=== PATIENT | female | born 1970 | race Caucasian/White ===

== ENCOUNTER 2023-11-25 14:02 | Outpatient (AMB) | payer OTHER, SELFPAY ==
--- NOTE | 2023-11-25 14:16 | A.OFFPC_ITS ---
Vital Signs 11/25/23 14:26 Height 5 ft 5 in Weight 124 lb 6 oz BMI 20.7 BP 98/66 Blood Pressure Location Rt brachial Position Sitting Respiration 14 Pulse 64 Pulse Source Pulse Oximeter Temp 98.2 F Temp Source Oral Pulse Oximetry (%) 98 Oxygen Delivery Method Room Air Intake Visit Reasons: Establish Care Intake Note: New patient visit. Sore throat for months. Post nasal drip, zyrtec is not helping. Outpatient Psychiatrist Required: No Post menopausal: Yes Allergies theophylline Allergy (Intermediate, Verified 11/25/23 14:20) jittery Medication List - Last Reconciled 11/25/23 by Alma Ulrich PA-C epinephrine (EpiPen 2-Lennox) 0.3 mg (0.3 mL) IM ONCE PRN Tobacco use date assessed: 11/25/23 Dental Screening Dental Screen Date: 11/25/23 Did you have a dental visit in the last 12 months?: Yes Did you have a dental problem in the last 6 months where you did not have access to dental care?: No Was dental information given to patient?: Patient has dentist HPI Establish Care HPI Details Patient is a 53-year-old female with a significant past medical history of asthma, hx of bulimia, presenting today with complaints of a sore throat and to establish care. She is transferring from [employer]. She was last seen by myself on 06/04/2023 for a new patient telehealth visit. She previously had been a patient of Dr. Flores. In May she would presented with concerns of postnasal drip in a right-sided lymph node that felt enlarged. That lymph node would come and go. At that point she did have an intermittent sore throat with pnd. She denied congestion, difficulty swallowing, night sweats, rashes, fever, chills, nausea, vomiting, GERD. She states in the last 2 months she has noticed that she is cutting her food smaller and more aware of her swallowing and feeling like she could choke. She states she now has a somewhat persistent sore throat. She states that for the last few months it has been present almost every day. She states that she is just worried because she used to smoke cigarettes and at different times has drink more alcohol than she probably should have. She states that she also has a history of bulimia in her teenage years and knows that she caused some damage to her throat. She states that the swelling on the right side of her neck has resolved. She does live in a house that has many allergens such as carpets, dust, pets, plants, etc. She states that she is prone to seasonal allergies as well. At our office visit I did advise her to try an antihistamine and follow up in 3- 4 weeks. An ultrasound and labs were also ordered. She did not follow-up. I do not have any laboratory records that I do have my office notes and the ultrasound which was normal ultrasound of the thyroid gland with a slightly prominent but not pathologically enlarged level 2 lymph nodes bilaterally, likely reactive. -this weekend she was eating something a nd she states that it must have had some allergen it because she had swelling of her face and lips. She felt like her throat was closing. She did have Benadryl on her and took it every 8 hours for a couple days. She would like to see an menagerie caretaker. She does see the dentist every 6 months and has complained of the sore throat and states that the dentist has not noted any abnormalities. Colonoscopy: due in 2031 Pap smear: Up-to-date, follow up with [facility] Mammogram:utd, 02/12/23 [facility] Medical History (Updated 11/25/23 @ 15:06 by Alma Ulrich PA-C) Food allergy Chronic sore throat Dysphagia Asthma Surgical History (Updated 11/25/23 @ 14:23 by Antoinette Swanson CMA) Previous section Family History (Updated 11/25/23 @ 14:24 by Antoinette Swanson CMA) Father Hypercholesteremia Mother Thyroid disorder Oral cancer Social History (Updated 11/25/23 @ 14:22 by Antoinette Swanson CMA) Housing: House Patient Tobacco Use Status: Former Tobacco user Cigarettes Per Day: 1 Years Smoked: 6 e-Cigarette/Vaping Use: Never Used Second Hand Smoke Exposure: No Substance Use Type: Marijuana service: No Current occupational status: employed 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 1. Little interest or pleasure in doing things: not at all 2. Feeling down, depressed, or hopeless: not at all 3. Trouble falling or staying asleep, or sleeping too much: several days 4. Feeling tired or having little energy: not at all 5. Poor appetite or overeating: not at all 6. Feeling bad about yourself - or that you are a failure or have let yourself or your family down: not at all 7. Trouble concentrating on things, such as reading the newspaper or watching television: not at all 8. Moving or speaking so slowly that other people could have noticed. Or the opposite - being so fidgety or restless that you have been moving around a lot more than usual: not at all 9. Thoughts that you would be better off or of hurting yourself in some way: not at all Total score: 1 Depression Screening Interpretation: Negative Depression Screening Done: Yes 98768 - PHQ-9 Billing: Yes Source: Developed by Drs. Brice Franco, Sherin Cash, Basilio Dent and colleagues, with an educational bryce from [employer]. Thrive Questionnaire Date Thrive assessed: 11/25/23 I am a: Patient What is your living situation today?: I have a steady place to live Within the past 12 months, did the food you bought not last and you didn't have the money to get more?: Never true Within the past 12 months, did you worry whether your food would run out before you got money to buy more?: Never true Do you have trouble paying for medicines?: No Do you have trouble getting transportation to medical appointments?: No Do you have trouble paying your heating and electricity bill?: No Do you have trouble taking care of your child, family member or friend?: No Do you have trouble with day-to-day activities such as bathing, preparing meals, shopping, managing finances, etc.?: No Are you currently unemployed and looking for a job?: No Are you interested in more education?: No Please select the resources that you would like help with: None Currently or been in a relationship where the following occur: no concerns reported THRIVE Score: 0 AUDIT C Alcohol Use Questionnaire (AUDIT-C) 1. How often do you have a drink containing alcohol?: 4 or more times a week 2. How many drinks containing alcohol do you have on a typical day when you are drinking?: 1 or 2 3. How often do you have six or more drinks on one occasion?: Never Total Score: 4 IQRA-7 AMB Questionnaire IQRA-7 Date IQRA - 7 assessed: 11/25/23 Feeling nervous, anxious, or on edge: 0 = Not at all Not being able to stop or control worryin = Not at all Worrying too much about different things: 0 = Not at all Trouble relaxin = Not at all Being so restless that it is hard to sit still: 0 = Not at all Becoming easily annoyed or irritable: 0 = Not at all Feeling afraid as if something awful might happen: 0 = Not at all Total IQRA-7 score (0-4 normal; 5-9 mild; 10-14 moderate; 15-21 severe): 0 Source: Developed by Drs. Brice Franco, Sherin Cash, Basilio Dent and colleagues, with an educational bryce from [employer]. IQRA-7 Assessment Billing IQRA-7 Assessment Tool: IQRA-7 Assessment 44558 ACT Questionnaire In the past 4 weeks, how much of the time did your asthma keep you from getting as much done at work, school or at home?: None of the time During the past 4 weeks, how often have you had shortness of breath?: Not at all During the past 4 weeks, how often did your asthma symptoms wake you up at night or earlier than usual in the morning?: Not at all During the past 4 weeks, how often have you had to use your rescue inhaler or nebulizer medication?: Not at all How would you rate your asthma control during the past 4 weeks?: Completely controlled ACT Interpretation: Negative Score: 25 Physical exam (Primary Care) Depression Screening Interpretation: Negative Currently or been in a relationship where the following occur: no concerns reported Const Orientation/consciousness: patient oriented x3 HENMT Ears: hearing grossly normal bilaterally and TM's normal bilaterally General nose exam: Normal nasal mucous membranes and turbinates present Face and sinus: Yes sinuses nontender Mouth: Normal oral and palatal mucosa present, lip normal and tongue normal Throat: Yes posterior oropharynx normal and Yes uvula midline Eyes Pupils: Equal, round and reactive pupils present EOM: EOMs intact bilaterally Neck Thyroid: Thyroid normal Lymphatic: no lymphadenopathy noted Resp Auscultation: clear to auscultation bilaterally Cardio Rate: regular rate Rhythm: regular rhythm Heart sounds: S1 normal heart sound present and S2 normal heart sound present GI Inspection: Yes normal to inspection Palpation (GI): Soft to palpation and Other GI palpation findings present (nontender, no cva tenderness) Auscultation: normoactive bowel sounds Rectal Exam - Female: deferred Skin General skin exam: no rashes or lesions noted Neuro General: patient oriented x3, gait normal and no focal motor deficits Cranial nerves: Yes Equal, round and reactive pupils present Assessment and Plan Assessment & Plan (1) Dysphagia: Code(s): R13.10 - Dysphagia, unspecified Qualifiers: Dysphagia type: unspecified Qualified Code(s): R13.10 - Dysphagia, unspecified Plan: No weight loss or visible abnormality. Labs and barium swallow ordered. (2) Chronic sore throat: Code(s): J31.2 - Chronic pharyngitis Plan: Referral to ENT and Allergy and immunology. She will follow up sooner if anything worsens or changes. (3) Food allergy: Code(s): Z91.018 - Allergy to other foods Plan: EpiPen ordered. Her children have food allergies and she states that she is aware of how to use this. Advised to seek emergent medical treatment should she develop any signs or symptoms of anaphylaxis. She has been referred to Allergy and immunology. Plan Advised three-month follow up. Sooner if needed. Patient understands and agrees with the plan. Orders: Orders FL barium swallow Today J31.2 - Chronic pharyngitis, R13.10 - Dysphagia, unspecified Complete Blood Count Auto Diff Today J31.2 - Chronic pharyngitis, R13.10 - Dysphagia, unspecified Comprehensive Met. Panel Today J31.2 - Chronic pharyngitis, R13.10 - Dysphagia, unspecified TSH reflex Free T4 Today J31.2 - Chronic pharyngitis, R13.10 - Dysphagia, unspecified Referrals Ear/Nose/Throat Referral J31.2 - Chronic pharyngitis, R13.10 - Dysphagia, unspecified Allergy & Immunology Referral J31.2 - Chronic pharyngitis, Z91.018 - Allergy to other foods Medications: New epinephrine (EpiPen 2-Lennox) 0.3 mg (0.3 mL) IM ONCE PRN 2 ea 0RF anaphylaxis Coding Level of Care Code Est Pt Level 4 (68925) Complex EM visit Add On G2211 Diagnoses Dysphagia, unspecified type R13.10 Dysphagia type: unspecified Chronic sore throat J31.2 Food allergy Z91.018 Additional Codes IQRA-7 Assessment Billing - IQRA-7 Assessment Tool: IQRA-7 Assessment 66968 ([id number])
[2023-11-25 14:26] VITALS: BP 98/66; PULSE 64; RESP 14; TEMP 36.8; O2SAT 98; BMI 20.7
== END 2023-11-25 15:04 | disposition home or self-care (01) ==
PROVIDERS: PCP Physician Assistant; Visit Provider Physician Assistant
DX: R13.10 Dysphagia, unspecified (principal); J31.2 Chronic pharyngitis; Z91.018 Allergy to other foods
CPT/HCPCS: 99214; G2211

== ENCOUNTER 2023-11-26 09:16 | Outpatient (REF) | payer OTHER, SELFPAY ==
[2023-11-26 12:58] LABS: Alanine Aminotransferase 10 U/L (0-31); Alkaline Phosphatase 70 U/L (39-117); Anion Gap 13 (12-20); Aspartate Amino Transferase 17 U/L (5-31); Bilirubin Total 0.6 mg/dL (0.0-1.0); Blood Urea Nitrogen 13 mg/dL (9-16); Calcium 9.4 mg/dL (8.4-10.2); Carbon Dioxide 29 mmol/L (22-29); Chloride 101 mmol/L (96-108); Estimated Glomerular Filt Rate > 60; Glucose Random 79 mg/dL (60-115); Potassium 4.1 mmol/L (3.3-5.1); Sodium 139 mmol/L (135-145); TSH reflex Free T4 0.74 uIU/mL (0.32-4.0); Total Protein 7.2 g/dL (6.5-8.0)
== END 2023-11-26 09:17 | disposition home or self-care (01) ==
LOC: HO.WFDLDS 09:16
PROVIDERS: Visit Provider Physician Assistant
DX: J31.2 Chronic pharyngitis (principal); R13.10 Dysphagia, unspecified
CPT/HCPCS: 36415; 80053; 84443

== ENCOUNTER 2024-03-31 07:45 | Outpatient (REF) | payer OTHER, SELFPAY ==
--- NOTE | ~2024-03-31 | FL_ITS ---
EXAMINATION: XR FLUOROSCOPY UPPER GI WITH AIR CLINICAL INFORMATION: Dysphagia COMPARISON: None TECHNIQUE: Fluoroscopic air contrast upper GI examination was performed utilizing standard techniques with thin and thick barium and effervescent granules. Numerous spot images were obtained. FINDINGS: Lateral cine images of the oropharynx and hypopharynx demonstrate normal swallow mechanism with normal epiglottic inversion and soft palate elevation. No tracheal penetration, glottic or subglottic aspiration identified. No nasopharyngeal reflux present. There is a tiny left lateral pharyngeal pouch. There is minimal cricopharyngeal achalasia. Dual and single contrast images of the esophagus demonstrate normal caliber, contour, and mucosal pattern. No evidence of stricture, mass, or ulcerations identified. Esophageal peristalsis is mildly disorganized. No evidence of hiatus hernia identified. No significant gastroesophageal reflux was seen during the course of the examination and on reflux views. Dual contrast and single contrast images of the stomach demonstrated a normal contour. The areae gastrica have a mildly prominent appearance. There are multiple tiny foci of contrast pooling in the body of stomach that may represent small superficial apthous ulcers. No masses are present. Contrast freely passed into the gastric antrum and duodenal bulb without delay. Single and air-contrast images of the duodenal bulb demonstrate no abnormality. The duodenal sweep has a normal appearance, course, and mucosal fold appearance. The imaged proximal jejunum has a normal fold pattern and caliber. FLUOROSCOPY TIME: 3 minutes 3 seconds Number of Spot Images: 11 Number of Cine: 11 DOSE AREA PRODUCT: 990.5 uGy-m2 (microgray-meter squared) FL/FL barium swallow IMPRESSION: 1. Minimal cricopharyngeal achalasia. 2. Mildly disorganized esophageal peristalsis. 3. Prominence of the areae gastricae. In addition, there are multiple tiny foci of contrast pooling in the body the stomach. These findings are suggestive of erosive gastritis. Recommend correlation with EGD. This procedure was performed by Saurabh Fried PA-C, and supervised by Dr. Becerra Electronically signed by: Regino Becerra MD 03/31/2024 03:54 PM EDT
== END 2024-03-31 07:46 | disposition home or self-care (01) ==
LOC: HO.XRAY 07:45
PROVIDERS: PCP Physician Assistant; Visit Provider Physician Assistant
DX: R13.10 Dysphagia, unspecified (principal); J31.2 Chronic pharyngitis
CPT/HCPCS: 74220

== ENCOUNTER → 2024-03-31 07:46 | Outpatient (BNV) | payer OTHER, SELFPAY | PROVIDERS: PCP Physician Assistant; Visit Provider Radiology Diagnostic Radiology | DX: R13.10 Dysphagia, unspecified (principal) | CPT/HCPCS: 74246 ==

== ENCOUNTER 2024-04-01 10:44 | Outpatient (AMB) | payer OTHER, SELFPAY ==
--- NOTE | 2024-04-01 11:10 | MHC.PC.OV ---
Vital Signs 04/01/24 11:14 Height 5 ft 5 in Weight 122 lb 2 oz BMI 20.3 BP 100/74 Blood Pressure Location Rt brachial Position Sitting Respiration 12 Pulse 78 Pulse Source Pulse Oximeter Pulse Oximetry (%) 97 Oxygen Delivery Method Room Air Intake Visit Reasons: f/u throat issues Intake Note: Follow up. Had a barium swallow yesterday. Inflammation left hip. Has bursitis, but its getting worse. Feels like there is masses in her lower back and neck. Shell Sorter Required: No Allergies theophylline Allergy (Intermediate, Verified 04/01/24 11:12) jittery Medication List - Last Reconciled 04/01/24 by Alma Ulrich PA-C cetirizine (Zyrtec) 10 mg PO DAILY PRN [collagen peptides .] epinephrine (EpiPen 2-Lennox) 0.3 mg (0.3 mL) IM ONCE PRN Tobacco use date assessed: 11/25/23 Dental Screening Dental Screen Date: 11/25/23 HPI f/u throat issues HPI Details Patient is a 53-year-old female with a significant past medical history of asthma, hx of bulimia, presenting today for a follow up. She is transferring from [facility]. HEENT: In May 2023 she would presented with concerns of postnasal drip in a right-sided lymph node that felt enlarged. That lymph node would come and go. At that point she did have an intermittent sore throat with pnd. Then a few months ago she noticed that she was cutting her food smaller and more aware of her swallowing and feeling like she could choke. Her sore throat also became more persistent -I did order a barium swallow, ultrasound, referral to Allergy, and referral to ENT she did have the ultrasound which was negative. The barium swallow results came back yesterday: FL/FL barium swallow IMPRESSION: 1. Minimal cricopharyngeal achalasia. 2. Mildly disorganized esophageal peristalsis. 3. Prominence of the areae gastricae. In addition, there are multiple tiny foci of contrast pooling in the body the stomach. These findings are suggestive of erosive gastritis. Recommend correlation with EGD. -I did recommend that she try an antihistamine and she states that that caused her sore throat to be resolved. -She states that she is just worried because she used to smoke cigarettes and at different times has drink more alcohol than she probably should have. She states that she also has a history of bulimia in her teenage years and knows that she caused some damage to her throat. She states that the swelling on the right side of her neck has resolved. She does live in a house that has many allergens such as carpets, dust, pets, plants, etc. She states that she is prone to seasonal allergies as well. Musculoskeletal: She does complain today flank pain on both sides. She states it feels like she has cancer on her kidneys. She says that she feels cancer bubbles/masses that roll up her back. It seems to happen when she is sitting for a long time like at a desk or in a car. In certain positions she will get pain and lumps that she is not really able to feel on her flank area. She denies any abnormal vaginal discharge, dysuria, hematuria, increased urinary frequency or urgency. No pelvic pain or pressure. No weight loss. No fever, chills, night sweats. She has been getting some bilateral hip pain with this as well. Left side is worse than the right side. She does not want to see ortho yet. Colonoscopy: due in 2031 Pap smear: Up-to-date, follow up with [facility] Mammogram:utd, 02/12/23 [facility] Medical History (Updated 04/01/24 @ 11:56 by Alma Ulrich PA-C) Food allergy Chronic sore throat Dysphagia Asthma Surgical History (Updated 11/25/23 @ 14:23 by Antoinette Swanson CMA) Previous section Family History (Updated 11/25/23 @ 14:24 by Antoinette Swanson CMA) Father Hypercholesteremia Mother Thyroid disorder Oral cancer Social History (Updated 11/25/23 @ 14:22 by Antoinette Swanson CMA) Housing: House Patient Tobacco Use Status: Former Tobacco user Cigarettes Per Day: 1 Years Smoked: 6 e-Cigarette/Vaping Use: Never Used Second Hand Smoke Exposure: No Substance Use Type: Marijuana service: No Current occupational status: 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 Brice Franco, Sherin Cash, Basilio Dent and colleagues, with an educational bryce from [employer]. Physical exam (Primary Care) Vital Signs: Last Vital Signs Pulse 78 04/01/24 11:14 Resp 12 04/01/24 11:14 BP 100/74 04/01/24 11:14 Pulse Ox 97 04/01/24 11:14 Oxygen Delivery Method Room Air 04/01/24 11:14 BMI result Body Mass Index 20.3 Tobacco/Smoking Status: Tobacco use Status Tobacco use date assessed 11/25/23 04/01/24 11:17 Patient Tobacco Use Status Former Tobacco user 04/01/24 11:17 e-Cigarette/Vaping Use Never Used 04/01/24 11:17 Thrive Assessment: Date of Thrive Assessment Date Thrive assessed 11/25/23 04/01/24 11:17 Assessment and Plan Assessment & Plan (1) Dysphagia: Code(s): R13.10 - Dysphagia, unspecified Qualifiers: Dysphagia type: unspecified Qualified Code(s): R13.10 - Dysphagia, unspecified Plan: Reviewed the barium swallow. Referral to GI for an endoscopy. (2) Chronic sore throat: Code(s): J31.2 - Chronic pharyngitis Plan: Resolved (3) Erosive esophagitis: Code(s): K22.10 - Ulcer of esophagus without bleeding Plan: As above. We will start omeprazole. Discussed diet changes. Advised to avoid NSAIDs and alcohol. (4) Achalasia, esophageal: Code(s): K22.0 - Achalasia of cardia Plan: As above (5) Bilateral flank pain: Code(s): R10.9 - Unspecified abdominal pain Plan: Discussed with patient that it sounds more musculoskeletal in etiology versus related to her kidneys. Ultrasound ordered. Urine ordered. We will check labs. (6) Bilateral hip pain: Code(s): M25.551 - Pain in right hip; M25.552 - Pain in left hip Plan: X-rays ordered (7) Lumbar pain: Code(s): M54.50 - Low back pain, unspecified Plan: As above Plan Short term follow up. Sooner if needed. Patient understands and agrees with the plan. Orders: Orders Comprehensive Met. Panel Today M25.551 - Pain in right hip, M25.552 - Pain in left hip, M54.50 - Low back pain, unspecified, R10.9 - Unspecified abdominal pain XR lumbar spine 2-3V Today M25.551 - Pain in right hip, M25.552 - Pain in left hip, M54.50 - Low back pain, unspecified, R10.9 - Unspecified abdominal pain UA CC w/rflx Micro + Cult Today R10.9 - Unspecified abdominal pain US renal BI Today M25.551 - Pain in right hip, M25.552 - Pain in left hip, M54.50 - Low back pain, unspecified, R10.9 - Unspecified abdominal pain Complete Blood Count Auto Diff Today M25.551 - Pain in right hip, M25.552 - Pain in left hip, M54.50 - Low back pain, unspecified, R10.9 - Unspecified abdominal pain XR hip BI w PEL1V Today M25.551 - Pain in right hip, M25.552 - Pain in left hip, M54.50 - Low back pain, unspecified, R10.9 - Unspecified abdominal pain XR thoracic spine 2V Today M25.551 - Pain in right hip, M25.552 - Pain in left hip, M54.50 - Low back pain, unspecified, R10.9 - Unspecified abdominal pain Referrals Gastroenterology Referral J31.2 - Chronic pharyngitis, K22.0 - Achalasia of cardia, K22.10 - Ulcer of esophagus without bleeding, R13.10 - Dysphagia, unspecified Medications: New omeprazole 20 mg PO DAILY 90 caps 1RF Coding Level of Care Code Est Pt Level 4 (78577) Complex EM visit Add On G2211 Diagnoses Dysphagia, unspecified type R13.10 Dysphagia type: unspecified Chronic sore throat J31.2 Erosive esophagitis K22.10 Achalasia, esophageal K22.0 Bilateral flank pain R10.9 Bilateral hip pain M25.551; M25.552 Lumbar pain M54.50
[2024-04-01 11:14] VITALS: BP 100/74; PULSE 78; RESP 12; O2SAT 97; BMI 20.3
== END 2024-04-01 12:03 | disposition home or self-care (01) ==
PROVIDERS: PCP Physician Assistant; Visit Provider Physician Assistant
DX: R13.10 Dysphagia, unspecified (principal); J31.2 Chronic pharyngitis; K22.10 Ulcer of esophagus without bleeding; K22.0 Achalasia of cardia; R10.9 Unspecified abdominal pain; M25.551 Pain in right hip; M25.552 Pain in left hip; M54.50 Low back pain, unspecified
CPT/HCPCS: 99214

== ENCOUNTER 2024-04-02 10:03 | Outpatient (REF) | payer OTHER, SELFPAY ==
[2024-04-02 11:18] LABS: MANUAL DIFF FLAG NO
[2024-04-02 11:37] LABS: Basophils Absolute Auto 0.1 X10*3/uL (0.0-0.2); Basophils Percent Auto 1.1 % (0-2); Eosinophils Absolute Auto 0.1 X10*3/uL (0.0-0.4); Eosinophils Percent Auto 1.4 % (0-4); Hematocrit 39.9 % (37.0-47.0); Hemoglobin 13.8 g/dl (12.0-16.0); Imm Gran Abs Auto 0.02 X10*3/uL (0.00-0.03); Imm Gran Pct Auto 0.3 % (0.0-0.4); Lymphocytes Absolute Auto 2.5 X10*3/uL (1.2-4.9); Lymphocytes Percent Auto 39.5 % (20-40); Mean Corpuscular HGB Conc 34.6 g/dl (31.0-35.0); Mean Corpuscular Hemoglobin 33.7 pg (27.0-33.0); Mean Corpuscular Volume 97.6 fL (80.0-98.0); Mean Platelet Volume 9.1 fL (9.4-12.3); Monocytes Absolute Auto 0.6 X10*3/uL (0.1-1.2); Monocytes Percent Auto 9.9 % (2-11); Neutrophils Percent Auto 47.8 % (45-73); Platelet Count 360 X10*3/uL (160-400); Red Blood Count 4.09 X10*6/uL (4.20-5.50); Red Cell Distribution Width 11.9 % (11.0-16.0); White Blood Count 6.3 X10*3/uL (4.8-10.8)
[2024-04-02 12:16] LABS: Alanine Aminotransferase 13 U/L (0-31); Albumin Level 4.5 g/dL (3.5-5.0); Alkaline Phosphatase 70 U/L (39-117); Anion Gap 15 (12-20); Aspartate Amino Transferase 21 U/L (5-31); Bilirubin Total 1.3 mg/dL (0.0-1.0); Blood Urea Nitrogen 12 mg/dL (9-16); Carbon Dioxide 26 mmol/L (22-29); Chloride 103 mmol/L (96-108); Estimated Glomerular Filt Rate > 60; Glucose Random 99 mg/dL (60-115); Potassium 4.1 mmol/L (3.3-5.1); Sodium 140 mmol/L (135-145); Total Protein 7.6 g/dL (6.5-8.0)
[2024-04-02 14:58] LABS: Appearance Urine Clear; Color Urine Yellow; Glucose Urine UA Negative (Negative); Leukocyte Esterase Urine Negative (Negative); Nitrite Urine Negative (Negative); Urine Blood Negative (Negative); Urine Ketones Negative (Negative); Urine Protein Negative (Neg-Trace)
== END 2024-04-02 10:04 | disposition home or self-care (01) ==
LOC: HO.WFDLDS 10:03
PROVIDERS: Visit Provider Physician Assistant
DX: R10.9 Unspecified abdominal pain (principal); M25.551 Pain in right hip; M25.552 Pain in left hip; M54.50 Low back pain, unspecified; J31.2 Chronic pharyngitis; R13.10 Dysphagia, unspecified
CPT/HCPCS: 36415; 80053; 81003; 85025

== ENCOUNTER 2024-04-02 10:36 | Outpatient (REF) | payer OTHER, SELFPAY ==
--- NOTE | ~2024-04-02 | XR_ITS ---
EXAMINATION: XR BILATERAL HIPS WITH AP PELVIS CLINICAL INFORMATION: Abdominal pain. Pain in the hips and back. COMPARISON: None available. TECHNIQUE: AP and frog-leg lateral views of each hip and an AP view of the pelvis. FINDINGS: Borderline dysplasia of the acetabular bilaterally, left greater than right, with lateral center edge angle of [place] measuring 20-degrees on the left and 24-degrees on the right. Mild osteoarthritis of the left hip joint with subchondral sclerosis and marginal osteophytes. More minimal osteoarthritis of the right hip. Pubic symphysis is normal. SI joints are normal in appearance. No fractures. Small volume of barium within the cecum, rectum, and appendix. XR/XR hip BI w PEL1V IMPRESSION: 1. Mild osteoarthritis in the hips, left greater than right. 2. Borderline dysplasia of the acetabula bilaterally, left greater than right. Electronically signed by: Regino Gonzalez MD 04/20/2024 11:09 PM EDT
--- NOTE | ~2024-04-02 | XR_ITS ---
EXAMINATION: XR THORACIC SPINE XR LUMBAR SPINE CLINICAL INFORMATION: Pain in the hips and back. COMPARISON: None available. TECHNIQUE: AP, lateral, and swimmer's views of the thoracic spine and AP and lateral views of the lumbar spine and lateral view of the lumbosacral junction. FINDINGS: Thoracic: Vertebral body heights are normal. Alignment is anatomic without spondylolisthesis. Intervertebral disc heights are well-maintained. No degenerative disc disease. Paraspinal soft tissues are unremarkable. No osseous lesions are identified. Lumbar: [id number] degenerative disc disease at L2-L3 and L3-L4 is characterized by loss of intervertebral disc height and endplate osteophytes. There is grade 1 retrolisthesis of L2 on L3 by 4 mm. Grade 1 anterolisthesis of L3 on L4 measures 2 mm. Minimal degenerative disc disease at L4-L5. Vertebral body heights are normal. No fractures. Radiodense material is present in the right lower quadrant, potentially barium within the appendix and cecum. Soft tissues are otherwise unremarkable. XR/XR thoracic spine 2V IMPRESSION: 1. [id number] degenerative disc disease at L2-L3 and L3-L4 with grade 1 retrolisthesis of L2 on L3 and grade 1 anterolisthesis of L3 on L4. 2. No significant degenerative changes in the thoracic spine. Electronically signed by: Regino Gonzalez MD 04/20/2024 10:14 PM EDT RP
--- NOTE | ~2024-04-02 | XR_ITS ---
EXAMINATION: XR THORACIC SPINE XR LUMBAR SPINE CLINICAL INFORMATION: Pain in the hips and back. COMPARISON: None available. TECHNIQUE: AP, lateral, and swimmer's views of the thoracic spine and AP and lateral views of the lumbar spine and lateral view of the lumbosacral junction. FINDINGS: Thoracic: Vertebral body heights are normal. Alignment is anatomic without spondylolisthesis. Intervertebral disc heights are well-maintained. No degenerative disc disease. Paraspinal soft tissues are unremarkable. No osseous lesions are identified. Lumbar: [id number]-cfuhkwlg degenerative disc disease at L2-L3 and L3-L4 is characterized by loss of intervertebral disc height and endplate osteophytes. There is grade 1 retrolisthesis of L2 on L3 by 4 mm. Grade 1 anterolisthesis of L3 on L4 measures 2 mm. Minimal degenerative disc disease at L4-L5. Vertebral body heights are normal. No fractures. Radiodense material is present in the right lower quadrant, potentially barium within the appendix and cecum. Soft tissues are otherwise unremarkable. XR/XR lumbar spine 2-3V IMPRESSION: 1. Rfqu-pl-[id number] degenerative disc disease at L2-L3 and L3-L4 with grade 1 retrolisthesis of L2 on L3 and grade 1 anterolisthesis of L3 on L4. 2. No significant degenerative changes in the thoracic spine. Electronically signed by: Regino Gonzalez MD 04/20/2024 10:14 PM EDT
== END 2024-04-02 10:37 | disposition home or self-care (01) ==
LOC: HO.XRAY 10:36
PROVIDERS: PCP Physician Assistant; Visit Provider Physician Assistant
DX: R10.9 Unspecified abdominal pain (principal); M54.50 Low back pain, unspecified; M25.551 Pain in right hip; M25.552 Pain in left hip
CPT/HCPCS: 72070; 72100; 73521

== ENCOUNTER 2024-05-19 09:46 | Outpatient (AMB) | payer BC, SELFPAY ==
--- NOTE | 2024-05-19 09:58 | MHC.OFFVIS ---
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 Pt states her left side is worse than her right. She mentions that her pain has been going on for many years. Patient states she hasn't had any previous treatment in the past. She states that she works out everyday and it hasn't improved. 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 The patient was seen by her PCP on 04/01/24 when she reported bilateral hip pain, the left hip worse than the right hip. X-rays of the bilateral hips were obtained. While in the office today, the patient mentions ongoing pain for the past 17-18 years. She confirms bilateral hip pain, which is worse in the left hip than the right hip. She does mobility exercises every morning without any improvement in the pain. She has not tried any treatment in the past. She has tried OTC ibuprofen as recommended by her PCP. [facility] Medical History (Updated 05/19/24 @ 10:20 by Yris Middleton PA-C) Food allergy Chronic sore throat Dysphagia Asthma Surgical History (Updated 11/25/23 @ 14:23 by Antoinette Swanson CMA) Previous section Family History (Updated 11/25/23 @ 14:24 by Antoinette Swanson CMA) Father Hypercholesteremia Mother Thyroid disorder Oral cancer Social History (Updated 05/19/24 @ 10:02 by Stalin Dunlap) Housing: House Alcohol intake: never Patient Tobacco Use Status: Former Tobacco user Cigarettes Per Day: 1 Years Smoked: 6 e-Cigarette/Vaping Use: Never Used Second Hand Smoke Exposure: No Substance Use Type: Marijuana service: No Current occupational status: 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: No Cognitive needs: No Hearing needs: No Vision needs: Yes (glasses) Review of Systems Const All systems reviewed & are unremarkable except as noted in HPI and below Physical Exam Const General: cooperative and no acute distress Orientation/consciousness: patient oriented x3 Resp Effort & Inspection: normal respiratory effort and able to speak in complete sentences Cardio Peripheral pulses: Peripheral pulses 2+ throughout Skin General skin exam: no rashes or lesions noted Neuro General: patient oriented x3 Extrem Other: Bilateral hip: Normal to inspection. No ecchymosis, erythema, or edema. Full hip ROM in all planes. No tenderness to palpation over the greater trochanteric bursa. 5/5 strength with resisted hip flexion, knee extension, abduction, and abduction. Able to perform straight leg raise. NVI. Assessment & Plan Assessment & Plan (1) Bilateral hip dysplasia: Code(s): Q65.89 - Other specified congenital deformities of hip Category: Medical Plan Ms. Wright is a 53-year-old female who presents in the office today, as a new patient, for an evaluation of bilateral hip pain. The patient was seen by her PCP on 04/01/24 when she reported bilateral hip pain, the left hip worse than the right hip. X-rays of the bilateral hips were obtained. While in the office today, the patient mentions ongoing pain for the past 17-18 years. She confirms bilateral hip pain, which is worse in the left hip than the right hip. She does mobility exercises every morning without any improvement in the pain. She has not tried any treatment in the past. She has tried OTC ibuprofen as recommended by her PCP. We discussed the role of surgical versus a conservative treatment, including a cortisone injection or physical therapy. We would like to proceed with physical therapy at this time. The patient was provided with a paper copy of the physical therapy prescription to go to any facility she wished to attend. She was encouraged to continue mobility exercises and advised to modify activities as needed. She was recommended wearing good supportive footwear to aid with pain. She was also provided with my business card today. Follow-up will be PRN, or sooner if needed. X-rays of the bilateral hips, obtained on 05/02/24, revealed: 1. Mild osteoarthritis in the hips, left greater than right. 2. Borderline dysplasia of the acetabula bilaterally, left greater than right. Orders: Orders PT Evaluation and Treatment Today Q65.89 - Other specified congenital deformities of hip Patient Instructions: Scribed by Lindsay White faculty i on call medical assistant, for Yris Middleton PA-C on 05/19/24 at 10:30 am EST. Coding Level of Care Code New Pt Level 3 (05632) Diagnoses Bilateral hip dysplasia Q65.89
== END 2024-05-19 10:25 | disposition home or self-care (01) ==
PROVIDERS: PCP Physician Assistant; Visit Provider Physician Assistant
DX: Q65.89 Other specified congenital deformities of hip (principal)
CPT/HCPCS: 99203

== ENCOUNTER → 2024-05-19 09:46 | Outpatient (BNVA) | payer OTHER, SELFPAY | PROVIDERS: PCP Physician Assistant; Visit Provider Physician Assistant ==

== ENCOUNTER 2024-07-09 08:29 | Outpatient (AMB) | payer BC, SELFPAY ==
--- NOTE | 2024-07-09 08:30 | MHC.PC.OV ---
Vital Signs 07/09/24 08:33 Height 5 ft 5 in Weight 125 lb 4 oz BMI 20.8 BP 110/64 Blood Pressure Location Rt brachial Position Sitting Pulse 51 Pulse Source Pulse Oximeter Pulse Oximetry (%) 100 Oxygen Delivery Method Room Air Intake Visit Reasons: follow up on xray and blood work Intake Note: Follow up on xray and blood work. Still having sore throat, ENT appt 08/03/24. Difficutly sleeping. 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 HEENT: In May 2023 she would presented with concerns of postnasal drip in a right-sided lymph node that felt enlarged and dysphagia that is somewhat new. She did have a barium swallow which showed the results listed below. FL/FL barium swallow IMPRESSION: 1. Minimal cricopharyngeal achalasia. 2. Mildly disorganized esophageal peristalsis. 3. Prominence of the areae gastricae. In addition, there are multiple tiny foci of contrast pooling in the body the stomach. These findings are suggestive of erosive gastritis. Recommend correlation with EGD. -she has an appointment with GI 08/03 and has already been referred to ENT as well. Since starting the antihistamine and pantoprazole symptoms have improved. 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 Psych: Has had a hard time falling asleep and staying asleep. In the past was using CBD but does not want to do this because she does not want to test positive for any THC on a drug screen. She says that she is looking for a new job. Colonoscopy: due in 2031 Pap smear: Up-to-date, follow up with [facility] Mammogram:utd, 02/12/23 [facility] Medical History (Updated 07/09/24 @ 08:55 by Alma Ulrich PA-C) Food allergy Chronic sore throat Dysphagia Asthma Surgical History Previous section Family History (Updated 11/25/23 @ 14:24 by Antoinette Swanson CMA) Father Hypercholesteremia Mother Thyroid disorder Oral cancer Social History (Updated 07/09/24 @ 08:33 by Antoinette Swanson CMA) Housing: House Alcohol intake: current Patient Tobacco Use Status: Former Tobacco user Cigarettes Per Day: 1 Years Smoked: 6 e-Cigarette/Vaping Use: Never Used Second Hand Smoke Exposure: No Substance Use Type: Former Substance User and Marijuana service: No Current occupational status: 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 1. Little interest or pleasure in doing things: not at all 2. Feeling down, depressed, or hopeless: not at all 3. Trouble falling or staying asleep, or sleeping too much: more than half the days 4. Feeling tired or having little energy: not at all 5. Poor appetite or overeating: not at all 6. Feeling bad about yourself - or that you are a failure or have let yourself or your family down: not at all 7. Trouble concentrating on things, such as reading the newspaper or watching television: not at all 8. Moving or speaking so slowly that other people could have noticed. Or the opposite - being so fidgety or restless that you have been moving around a lot more than usual: not at all 9. Thoughts that you would be better off or of hurting yourself in some way: not at all Total score: 2 Source: Developed by Drs. Brice Franco, Sherin Cash, Basilio Dent and colleagues, with an educational bryce from [employer]. Thrive Questionnaire Date Thrive assessed: 11/25/23 I am a: Patient What is your living situation today?: I have a steady place to live Within the past 12 months, did the food you bought not last and you didn't have the money to get more?: Never true Within the past 12 months, did you worry whether your food would run out before you got money to buy more?: Never true Do you have trouble paying for medicines?: No Do you have trouble getting transportation to medical appointments?: No Do you have trouble paying your heating and electricity bill?: No Do you have trouble taking care of your child, family member or friend?: No Do you have trouble with day-to-day activities such as bathing, preparing meals, shopping, managing finances, etc.?: No Are you currently unemployed and looking for a job?: Yes Are you interested in more education?: No Please select the resources that you would like help with: None Currently or been in a relationship where the following occur: No concerns reported THRIVE Score: 0 AUDIT C Alcohol Use Questionnaire (AUDIT-C) 1. How often do you have a drink containing alcohol?: 4 or more times a week 2. How many drinks containing alcohol do you have on a typical day when you are drinking?: 1 or 2 3. How often do you have six or more drinks on one occasion?: Never Total Score: 4 IQRA-7 AMB Questionnaire IQRA-7 Date IQRA - 7 assessed: 11/25/23 Feeling nervous, anxious, or on edge: 0 = Not at all Not being able to stop or control worryin = Not at all Worrying too much about different things: 0 = Not at all Trouble relaxin = Not at all Being so restless that it is hard to sit still: 0 = Not at all Becoming easily annoyed or irritable: 0 = Not at all Feeling afraid as if something awful might happen: 0 = Not at all Total IQRA-7 score (0-4 normal; 5-9 mild; 10-14 moderate; 15-21 severe): 0 Source: Developed by Drs. Brice Franco, Sherin Cash, Basilio Dent and colleagues, with an educational bryce from [employer]. Physical exam (Primary Care) Vital Signs: Last Vital Signs Pulse 51 07/09/24 08:33 BP 110/64 07/09/24 08:33 Pulse Ox 100 07/09/24 08:33 Oxygen Delivery Method Room Air 07/09/24 08:33 BMI result Body Mass Index 20.8 Tobacco/Smoking Status: Tobacco use Status Tobacco use date assessed 11/25/23 07/09/24 08:35 Patient Tobacco Use Status Former Tobacco user 07/09/24 08:35 e-Cigarette/Vaping Use Never Used 07/09/24 08:35 PHQ-9: PHQ-9 Score PHQ-9: Total score 2 07/09/24 08:40 Thrive Assessment: Date of Thrive Assessment Date Thrive assessed 11/25/23 07/09/24 08:35 Currently or been in a relationship where the following occur: No concerns reported Const Orientation/consciousness: patient oriented x3 HENMT Ears: hearing grossly normal bilaterally Neck Thyroid: Thyroid normal Lymphatic: no lymphadenopathy noted Resp Auscultation: clear to auscultation bilaterally Cardio Rate: regular rate Rhythm: regular rhythm Heart sounds: S1 normal heart sound present and S2 normal heart sound present GI Inspection: Yes normal to inspection Palpation (GI): Soft to palpation and Other GI palpation findings present (nontender, no cva tenderness) Auscultation: normoactive bowel sounds Rectal Exam - Female: deferred Skin General skin exam: no rashes or lesions noted Neuro General: patient oriented x3, gait normal and no focal motor deficits Results Reviewed Results Reviewed: FINDINGS: Thoracic: Vertebral body heights are normal. Alignment is anatomic without spondylolisthesis. Intervertebral disc heights are well-maintained. No degenerative disc disease. Paraspinal soft tissues are unremarkable. No osseous lesions are identified. Lumbar: [id number]-[id number] degenerative disc disease at L2-L3 and L3-L4 is characterized by loss of intervertebral disc height and endplate osteophytes. There is grade 1 retrolisthesis of L2 on L3 by 4 mm. Grade 1 anterolisthesis of L3 on L4 measures 2 mm. Minimal degenerative disc disease at L4-L5. Vertebral body heights are normal. No fractures. Radiodense material is present in the right lower quadrant, potentially barium within the appendix and cecum. Soft tissues are otherwise unremarkable. XR/XR thoracic spine 2V IMPRESSION: 1. Fzbs-hk-[id number] degenerative disc disease at L2-L3 and L3-L4 with grade 1 retrolisthesis of L2 on L3 and grade 1 anterolisthesis of L3 on L4. 2. No significant degenerative changes in the thoracic spine. Coding Level of Care Code Est Pt Level 4 (43218) Complex EM visit Add On G2211 Diagnoses Dysphagia, unspecified type R13.10 Dysphagia type: unspecified Chronic sore throat J31.2 Erosive esophagitis K22.10 Insomnia G47.00 Assessment & Plan Assessment & Plan (1) Dysphagia: Code(s): R13.10 - Dysphagia, unspecified Category: Medical Qualifiers: Dysphagia type: unspecified Qualified Code(s): R13.10 - Dysphagia, unspecified Plan: Has an appointment scheduled with GI. Increase omeprazole to 40 mg that she does have breakthrough symptoms. (2) Chronic sore throat: Code(s): J31.2 - Chronic pharyngitis Category: Medical Plan: Improved since starting PPI and antihistamine. Continue current regimen. Follow with ENT. (3) Erosive esophagitis: Code(s): K22.10 - Ulcer of esophagus without bleeding Category: Medical Plan: As above. (4) Insomnia: Code(s): G47.00 - Insomnia, unspecified Category: Medical Plan: We will start trazodone. Discussed risks and benefits and adverse effects of this medication. Orders: Orders TSH reflex Free T4 Today G47.00 - Insomnia, unspecified, J31.2 - Chronic pharyngitis, K22.10 - Ulcer of esophagus without bleeding, R13.10 - Dysphagia, unspecified Liver Panel Today G47.00 - Insomnia, unspecified, J31.2 - Chronic pharyngitis, K22.10 - Ulcer of esophagus without bleeding, R13.10 - Dysphagia, unspecified Complete Blood Count Auto Diff Today G47.00 - Insomnia, unspecified, J31.2 - Chronic pharyngitis, K22.10 - Ulcer of esophagus without bleeding, R13.10 - Dysphagia, unspecified Medications: New trazodone 50 mg PO BEDTIME 90 tabs 0RF Changed From omeprazole 20 mg PO DAILY 90 caps 1RF To omeprazole 40 mg (2 x 20 mg) PO DAILY 90 days 180 caps 1RF
[2024-07-09 08:33] VITALS: BP 110/64; PULSE 51; O2SAT 100; BMI 20.8
== END 2024-07-09 09:01 | disposition home or self-care (01) ==
PROVIDERS: PCP Physician Assistant; Visit Provider Physician Assistant
DX: R13.10 Dysphagia, unspecified (principal); J31.2 Chronic pharyngitis; K22.10 Ulcer of esophagus without bleeding; G47.00 Insomnia, unspecified

== ENCOUNTER 2024-07-09 09:21 | Outpatient (REF) | payer BC, SELFPAY ==
[2024-07-09 11:39] LABS: MANUAL DIFF FLAG NO
[2024-07-09 11:43] LABS: Basophils Absolute Auto 0.1 X10*3/uL (0.0-0.2); Basophils Percent Auto 0.8 % (0-2); Eosinophils Absolute Auto 0.1 X10*3/uL (0.0-0.4); Eosinophils Percent Auto 1.2 % (0-4); Hemoglobin 13.8 g/dl (12.0-16.0); Imm Gran Abs Auto 0.01 X10*3/uL (0.00-0.03); Imm Gran Pct Auto 0.2 % (0.0-0.4); Lymphocytes Absolute Auto 2.3 X10*3/uL (1.2-4.9); Lymphocytes Percent Auto 37.5 % (20-40); Mean Corpuscular HGB Conc 33.7 g/dl (31.0-35.0); Mean Corpuscular Hemoglobin 33.3 pg (27.0-33.0); Mean Corpuscular Volume 98.8 fL (80.0-98.0); Monocytes Absolute Auto 0.6 X10*3/uL (0.1-1.2); Monocytes Percent Auto 9.2 % (2-11); Neutrophils Absolute Auto 3.1 x10*3/uL (2.0-8.3); Neutrophils Percent Auto 51.1 % (45-73); Platelet Count 337 X10*3/uL (160-400); Red Blood Count 4.15 X10*6/uL (4.20-5.50); Red Cell Distribution Width 11.9 % (11.0-16.0); White Blood Count 6.1 X10*3/uL (4.8-10.8)
[2024-07-09 12:04] LABS: Alanine Aminotransferase 13 U/L (0-31); Albumin Level 4.3 g/dL (3.5-5.0); Alkaline Phosphatase 67 U/L (39-117); Aspartate Amino Transferase 28 U/L (5-31); Bilirubin Direct 0.4 mg/dL (0.0-0.5); Bilirubin Total 1.2 mg/dL (0.0-1.0); Total Protein 7.4 g/dL (6.5-8.0)
[2024-07-09 12:21] LABS: TSH reflex Free T4 1.85 uIU/mL (0.32-4.0)
== END 2024-07-09 09:22 | disposition home or self-care (01) ==
LOC: HO.WFDLDS 09:21
PROVIDERS: Visit Provider Physician Assistant
DX: J31.2 Chronic pharyngitis (principal); R13.10 Dysphagia, unspecified; K22.10 Ulcer of esophagus without bleeding; G47.00 Insomnia, unspecified
CPT/HCPCS: 36415; 80076; 84443; 85025

== ENCOUNTER 2024-08-03 12:47 | Outpatient (AMB) | payer BC, SELFPAY ==
[2024-08-03 12:49] VITALS: BP 123/74; PULSE 75; BMI 20.6
--- NOTE | 2024-08-03 12:49 | MHC.OFFVIS ---
Vital Signs 08/03/24 12:49 Height 5 ft 5 in Weight 123 lb 13.89 oz BMI 20.6 BP 123/74 Blood Pressure Location Lt brachial Position Sitting Pulse 75 Intake Visit Reasons: Dysphagia Intake Note: Zeenat present in the office as a new patient for Dysphagia. CC: She states that she has a sore throat. She denies a feeling of something stuck in her throat. No issues with swallowing. She was told that she may have acid reflux so she was given the pantoprazole and increased. She states that she feels it has gotten a little better and she feels it more when she is under a lot of stress. She states that she does not eat as often as she should so there is not a lot in her stomach. Service Center Assistant Required: No Allergies theophylline Allergy (Intermediate, Verified 08/03/24 12:53) colten HPI Comments Details: 53 y.o F with PMH who is here for burning throat . Pt describes it a globus sensation on and off throughout the day assoc with burning and urge to cough it up. Notices it more during the winter time since the air is dry now. No report of dysphagia but pt is very particular about food size and cuts up her food very small and chews thoroughly. Was taking NSAIDs but stopped as barium swallow showed gastritis. Started on PPI by her PCP. No fam hx of esophageal ca. Mother: tongue ca. Hx of smoking 15 y ago. Drinks 1 drink/day. Last colo 2022 - normal. 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 Minimal cricopharyngeal achalasia. 2. Mildly disorganized esophageal peristalsis. 3. Prominence of the areae gastricae. In addition, there are multiple tiny foci of contrast pooling in the body the stomach. These findings are suggestive of erosive gastritis. Recommend correlation with EGD. Assessment & Plan Assessment & Plan (1) Gastritis: Code(s): K29.70 - Gastritis, unspecified, without bleeding Category: Medical (2) Cricopharyngeal achalasia: Code(s): K22.0 - Achalasia of cardia Category: Medical Plan Likely has globus sensation 2/2 cricopharyngeal narrowing. Will book for EGD with dilation. Gastritis likely 2/2 NSAID use, will bx for H PYlori since getting EGD done anyway. Plan: - EGD to be booked - Cont ppi - hold x 7 days prior to egd - follow up after egd - [facility] not due till 2032. Follow up after egd Coding Level of Care Code New Pt Level 4 (59695) Diagnoses Gastritis K29.70 Cricopharyngeal achalasia K22.0
== END 2024-08-03 13:17 | disposition home or self-care (01) ==
PROVIDERS: PCP Physician Assistant; Visit Provider Internal Medicine
DX: K29.70 Gastritis, unspecified, without bleeding (principal); K22.0 Achalasia of cardia
CPT/HCPCS: 99204

== ENCOUNTER 2024-11-17 07:55 | Day surgery (SDC) | payer OTHER, SELFPAY ==
[2024-11-12 12:53] VITALS: BMI 20.6
--- OUTSIDE RECORDS SUMMARY | 2024-11-12 17:23 | XMS_ITS | Data Portability ---
Author Organization [place] [facility], Allergy Address [address] [place] [id number] Care Team Providers Care Roller Mill Tender Name Role Phone SINDY DEMPSEY Referring Provider [phone] LARA VO Primary Care Provider SINDY DEMPSEY Referring Provider Assessment Encounter Date Assessment Date Assessment LastModified by Organization Details LastModified Time 07/14/2024 07/14/2024 53 year old female presents today for evaluation of chronic sore throat. She has noted some improvement in the discomfort with initiation of omeprazole. Oral cavity exam is normal without any mass or lesion. Fiberoptic laryngoscopy is normal with the exception of mild postcricoid thickening, consistent with possible reflux disease. There is no adenopathy. Reassurance was provided that her exam is not concerning. I would agree with continuing the omeprazole and the GI consult. If the GI consult is unrevealing and she continues to have throat discomfort she will contact the office for reevaluation. [email or web address] Not available 07/14/2024 09:48:53 Plan of Treatment Reminders Order Date Submit Date Provider Last Modified By Organization Details Last Modified Time Details Appointments None record ed. Lab None record ed. Referral None record ed. Procedures None record ed. Surgeries None record ed. Imaging None record ed. Medication Orders None record ed. Patient TargetsNo targets recorded. Patient InstructionsNo instructions recorded. Reason for Referral None Reported. Problems Name Problem SNOMED Code Status Onset Date Resolution Date Notes Provider Name and Address Organization Details Recorded Time Chronic sore throat 871199520 Active Varinder Jasmyn zamora [place] [facility] 09:36:45 Problem Notes None recorded. Procedures Surgical History Date Name Laterality Status Provider Name and Address Organization Details Recorded Time 07/14/20 24 Fiberoptic Laryngoscopy (Comprehensive) completed Jasmyn Smith [facility] 07/14/2024 09:36:36 Imaging Results None recorded. Procedure Notes None recorded. Medical Equipment None Reported. Allergies Allergen ID Allergen Name Allergen Category Reaction Reaction Severity Criticality Documentation Date Start Date Code Code System Note Provider Name and Address Organization Details Recorded Time 096027 theophyll ine medicatio n Not available Not available Not available 07/14/2024 83217 RxNorm Mariela zamora [facility] 09:05:37 661408 theophyll ine anhydrous medicatio n Not available Not available Not available 07/14/2024 95455 RxNorm Mariela zamora [facility] 09:06:02 Medications Name Sig Start Date Stop Date Status Note LastModified by Organization Details LastModified Time trazodone 50 mg tablet TAKE 1 TABLET BY MOUTH AT BEDTIME active Not Available Not Available No t Available omeprazole 20 mg capsule,sandy yed release TAKE 1 CAPSULE BY MOUTH DAILY active Not Available Not Available Not Available epinephrine 0.3 mg/0.3 mL injection, auto-injecto r INJECT 1 PEN IN THE MUSCLE ONCE NEEDED FOR ANAPHYLAXIS active Not Available Not Available Not Available Vitals Date Recorded Body height Body mass index (BMI) Body weight Provider Name and Address Organization Details Last Updated DateTime 07/14/2024 165.1 cm 20.1 kg/m2 37237.68 g Mariela Montoya [facility] 07/14/2024 09:04:27 Social History Question Answer Notes LastModified by Organizat ion Details LastModified Time Tobacco Smoking Status Former Smoker Mariela zamora [facility] 07/14/2024 09:07:09 What Is Your Level Of Alcohol Consumption? Occasional [email or web address] Information not available 07/14/2024 Sex: Unknown Functional Status None recorded. Mental Status None recorded. Family History Nothing Reported. Medical History Condition Response Asthma Y Gynecological HistoryNo gynecological history recorded. Obstetrics History GPAL:G 0 P 0 0 0 0 Past Encounters Encounter ID Performer Location Encounter Start Date Encounter Closed Date Diagnosis/Indication Diagnosis SNOMED-CT Code Diagnosis ICD10 Code Diagnosis Note [id number] Jasmyn Smith [facility] [address] [facility] [place] [address] 07/14/2024 08:52:01 07/14/2024 10:07:11 Chronic sore throat 172492587 J31.2 Family his tory of malignant neoplasm of oral cavity 6473159372 422715 Z80.8 Health Concerns Section Related Observation LastModified by Organization Detai ls LastModified Time None Recorded Concern Status LastModified by Organization Details LastModified Time None Recorded Advance Directives Directive None Recorded Payers Encounter Date Sequence Insurance Name Policy Number Policy Aguilar Covered Member ID Aguilar Member ID Guarantor Name 07/14/2024 1 [facility] [place] [place] [id number] Saurabh Wright [id number] Zeenat Wright Notes Date Note Type Note Provider Name and Address Organization Details Recorded Time 07/14/2024 text/html 53 year old tayo puckett presents today for evaluation of sore throat.She reports the back wall of her throat has felt sore for about 6-8 months now. She denies any dysphagia, but she does have to be conscious of how quickly she eats and how small her bites are. She has no voice changes. She did see her PCP who started her on omeprazole for possible reflux. She has noted since starting the omeprazole she has seen some days when her throat is not sore. She admits that her diet is poor. Some days she will only drink a cup of coffee until she is very hungry. She has a GI appointment pending as well.She also feels like she has chronic postnasal drip. She often feels there is mucus in her throat that she needs to clear. She has a history of seasonal allergies and asthma in the past, but both of those symptoms seemed to improve when she had her son 18 years ago.She is a former smoker. She smoked for 5-6 years around college age. She has not smoked at all in about 15-20 years. She drinks alcohol socially, 1-2 alcoholic seltzers or a vodka and soda daily. She has a history of bulimia in college as well. Her mother, who was a non smoker, from tongue cancer. She does make an effort to drink at least 64 ounces of water per day. Jasmyn zamora [place] - [facility] 07/14/2024 09:49:05 OBGyn Episode No OBEpisode recorded.
--- NOTE | 2024-11-13 08:50 | HO.ANESPROP2 ---
Documented by User: Aye Marcus NP 11/13/24 08:50 HPI - Anesthesia Eval Consult details Narrative: 54yo F for Upper Endoscopy PMFSH Active Problems Active Problems: All Active Problems Cricopharyngeal achalasia (Acute) Gastritis (Acute) Insomnia (Acute) Bilateral hip dysplasia (Acute) Lumbar pain (Acute) Bilateral hip pain (Acute) Bilateral flank pain (Acute) Achalasia, esophageal (Acute) Erosive esophagitis (Acute) Food allergy (Acute) Chronic sore throat (Acute) Dysphagia (Acute) Past Medical History Medical History (Updated 11/12/24 @ 12:51 by Martha Fitzgerald RN) Bilateral hip dysplasia Chronic sore throat Dysphagia Asthma Family History Family History Father Hypercholesteremia Mother Thyroid disorder Oral cancer Surgical History Surgical History Hx of section Hx of colonoscopy Social History Social History Housing: House Are you a primary day care worker to a significant other at home: No Do you presently have visiting nurse or other home services: No Alcohol intake: current Alcohol intake frequency: 0-2 drinks per day Patient Tobacco Use Status: Former Tobacco user Tobacco use type: Cigarette Cigarettes Per Day: 1 Years Smoked: 2 Smoked in Last 30 Days: No e-Cigarette/Vaping Use: Never Used Second Hand Smoke Exposure: No Use of substances other than those prescribed or required for medical reasons: No Substance Use Type: Former Substance User and Marijuana Have you been hit, kicked, punched, or otherwise hurt by someone within the past year? 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 Cognitive needs: No Hearing needs: No Vision needs: Yes (glasses) Meds Allergies Allergy/AdvReac Type Severity Reaction Status Date / Time theophylline Allergy Intermediate jittery Verified 11/17/24 08:10 Home Medications ?Medication ?Instructions ?Recorded ?Confirmed ?Last Taken ?Type cetirizine 10 mg tablet (Zyrtec) 10 mg PO DAILY PRN allergies 04/01/24 11/17/24 Unknown History collagen peptides .Route 04/01/24 07/09/24 Unknown History Exam Height,Weight and Vital Signs: Height 5 ft 5 in Weight 56.245 kg Assessment and Plan Assessment Anesthesia Assessment: Chart Reviewed Documented by User: Vineet Pa MD 11/17/24 09:01 [facility] Past Medical History Medical History (Updated 11/12/24 @ 12:51 by Martha Fitzgerald RN) Bilateral hip dysplasia Chronic sore throat Dysphagia Asthma Family History Family History Father Hypercholesteremia Mother Thyroid disorder Oral cancer Family history of problems with anesthesia: No Surgical History Surgical History Hx of section Hx of colonoscopy History of Problems with Anesthesia: No Social History Social History Housing: House Are you a primary day care worker to a significant other at home: No Do you presently have visiting nurse or other home services: No Alcohol intake: current Alcohol intake frequency: 0-2 drinks per day Patient Tobacco Use Status: Former Tobacco user Tobacco use type: Cigarette Cigarettes Per Day: 1 Years Smoked: 2 Smoked in Last 30 Days: No e-Cigarette/Vaping Use: Never Used Second Hand Smoke Exposure: No Use of substances other than those prescribed or required for medical reasons: No Substance Use Type: Former Substance User and Marijuana Have you been hit, kicked, punched, or otherwise hurt by someone within the past year? 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 Cognitive needs: No Hearing needs: No Vision needs: Yes (glasses) Meds Allergies Allergy/AdvReac Type Severity Reaction Status Date / Time theophylline Allergy Intermediate jittery Verified 11/17/24 08:10 Home Medications ?Medication ?Instructions ?Recorded ?Confirmed ?Last Taken ?Type cetirizine 10 mg tablet (Zyrtec) 10 mg PO DAILY PRN allergies 04/01/24 11/17/24 Unknown History collagen peptides .Route 04/01/24 07/09/24 Unknown History Exam Airway Mallampati Class: II TM Dist: >3cm Neck ROM: Full Loose/Missing/Broken Teeth: No Assessment and Plan Assessment Anesthesia Assessment: Anesthesia Plan Discussed Final Anesthetic Review Family History of Problems with Anesthesia: No History of Problems with Anesthesia: No NPO: Yes ASA Class: II Final Preanesthetic Review: No Changes in Pt Med Stat, Meds/Allgs Chart Reviewed, Consent Obtained/Reviewed and Anes Risks/Benef Reviewed Patient Risk: Low Procedure Risk: Low Anesthetic Plan Anesthetic Plan: MAC: Disposition: Standard PACU
[2024-11-17 08:11] VITALS: BP 115/80; PULSE 69; RESP 16; TEMP 36.6; O2SAT 99; BMI 20.7
[2024-11-17] MEDS: Lactated Ringers 1,000 ML 100 ML IVCONT (08:20)
--- NOTE | 2024-11-17 08:20 | MHC.SHP ---
Pre-Procedural Eval Section A - 24 Hr Update-Section A only Date of Service: 11/17/24 Section B - Complete if H&P > 30 days Chief Complaint: Dysphagia, unspecified Details of Present Illness: Food allergy Chronic sore throat Dysphagia Asthma Surgical History Hx of colonoscopy Previous section Family History Father Hypercholesteremia Mother Thyroid disorder Oral cancer Present Medications: see Short Stay Collaborative assessment Allergies: Allergies Allergy/AdvReac Type Severity Reaction Status Date / Time theophylline Allergy Intermediate jittery Verified 11/17/24 08:10 Review of Systems Review of Systems Comment: 10 point ROS negative Exam Exam Comment: Gen appear: No acute distress HEENT: no icterus Chest: No overt resp distress Abd: soft, nontender, nondistended Psych: Stable affect, answering questions appropriately Neuro: A/Ox3 noted to move all extremities spontaneously Ext: no peripheral edema Plan Diagnosis/Plan: Unchanged I have reviewed the history and physical and performed a pertinent physical examination on my patient. No changes have occurred unless specified. Time Spent With Patient Time: Total time managing care of this patient today ____ minutes.
--- NOTE | 2024-11-17 08:41 | P.OP_ITS ---
Operative Note Operative Note Date of Service: 11/17/24 Narrative: Procedure: Esophagogastroduodenoscopy Endoscopist: Courtney Whitney MD Indication: Dysphagia Anesthesia Provider: Dr Vineet Pa Anesthesia Type: MAC ?? EGD Procedure:?? The procedure, indications, preparation and potential complications were reviewed with the patient, who indicated understanding and gave written informed consent to proceed. A physical exam was performed. The endoscope was introduced through the mouth, and advanced to the second part of duodenum. The mucosa was carefully examined on slow withdrawal of the endoscope. The patient tolerated the procedure well. There were no immediate complications.? ? EGD Findings:? * Esophagus:? Small erosions measuring < 5 mm noted at the GE junction. The Z line was at 39 cm. * Stomach:? Erythema and erosions noted in the antrum. There was a small 8 mm polyp pre-pylorus at 11 o clock with subtle mucosal changes on NBI. Cold forceps polypectomy was performed and the polyp was completely retrieved. Cold forceps gastric biopsies were also taken from antrum and body of the stomach. Retroflexion was performed cardia. * Duodenum:? Normal mucosa was noted in the whole of the examined duodenum. Additional intervention: Soft tipped Savary wire was introduced through the biopsy channel of the gastroscope and advanced to the antrum. ?The gastroscope was then backed out. ?Savary Debi bougie was advanced over the guidewire and the esophagus was dilated to 18 mm without any resistance felt. ?On relook, scant heme and superficial tear was noted at the level of cricopharyngeus confirming successful dilation. ? ? EGD Impressions:? * Grade A esophagitis * Cricopharyngeal narrowing (dilation) * Antral gastritis (biopsy) * Normal duodenum ?? Recommendations:?? * Follow biopsy results. Our office will call or send a letter with results within 7-10 days. * Continue PPI therapy. * Avoid NSAIDs. * Repeat dilation can be arranged PRN for recurrence of symptoms Above has been reviewed with the patient. Relevant educational hand outs were provided at discharge. ?
[2024-11-17 08:43] VITALS: BP 110/70; PULSE 75; RESP 16; TEMP 36.2; O2SAT 97
[2024-11-17 08:58] VITALS: BP 109/64; PULSE 62; RESP 17; TEMP 37; O2SAT 95
== END 2024-11-17 09:49 | disposition home or self-care (01) ==
PROVIDERS: PCP Physician Assistant; Visit Provider Internal Medicine
PROC: 0DJ08ZZ Inspection of Upper Intestinal Tract, Via Natural or Artificial Opening Endoscopic (ICD-10-PCS; CPT 43235; principal; 2024-11-17 09:10)
DX: R13.10 Dysphagia, unspecified (principal); K22.0 Achalasia of cardia; J31.2 Chronic pharyngitis; K29.50 Unspecified chronic gastritis without bleeding; B96.81 Helicobacter pylori [H. pylori] as the cause of diseases classified elsewhere; K31.A11 Gastric intestinal metaplasia without dysplasia, involving the antrum; K20.80 Other esophagitis without bleeding; K31.7 Polyp of stomach and duodenum; J45.909 Unspecified asthma, uncomplicated; Z79.899 Other long term (current) drug therapy; Z88.8 Allergy status to other drugs, medicaments and biological substances; F19.11 Other psychoactive substance abuse, in remission; Z87.891 Personal history of nicotine dependence; Z56.0 Unemployment, unspecified
CPT/HCPCS: 43248; 43239; 88305; 88313; 88342; C1769; J2003; J2704

== ENCOUNTER → 2024-11-17 07:55 | Outpatient (BNV) | payer OTHER, SELFPAY | PROVIDERS: PCP Physician Assistant; Visit Provider Internal Medicine | DX: R13.10 Dysphagia, unspecified (principal); K20.90 Esophagitis, unspecified without bleeding; K29.70 Gastritis, unspecified, without bleeding | CPT/HCPCS: 43239; 43248 ==

== ENCOUNTER 2024-12-04 11:26 | Outpatient (REF) | payer OTHER, SELFPAY ==
--- OUTSIDE RECORDS SUMMARY | 2024-12-04 11:56 | XMS_ITS | Data Portability ---
Author Organization [place] [facility], Allergy Address [address] [place] [phone] Care Team Providers Care Fish Processing Supervisor Name Role Phone SINDY DEMPSEY Referring Provider LARA VO Primary Care Provider [phone] SINDY DEMPSEY Referring Provider Assessment Encounter Date [...] Organization Details Recorded Time Chronic sore throat 002636778 Active Varinder Jasmyn zamora [place] [facility] 09:36:45 Problem Notes None recorded. Procedures Surgical History Date Name Laterality Status Provider Name and Address Organization Details Recorded Time 07/14/20 24 Fiberoptic Laryngoscopy (Comprehensive) completed Jasmyn Valero [facility] 07/14/2024 09:36:36 Imaging Results None recorded. Procedure Notes None recorded. Medical Equipment None Reported. Allergies Allergen ID Allergen Name Allergen Category Reaction Reaction Severity Criticality Documentation Date Start Date Code Code System Note Provider Name and Address Organization Details Recorded Time 697831 theophyll ine medicatio n Not available Not available Not available 07/14/2024 63918 RxNorm Mariela zamora [facility] 09:05:37 606335 theophyll ine anhydrous medicatio n Not available Not available Not available 07/14/2024 25794 RxNorm Mariela zamora [facility] 09:06:02 Medications Name Sig Start Date Stop [...] Updated DateTime 07/14/2024 165.1 cm 20.1 kg/m2 16320.68 g Mariela Montoya [facility] 07/14/2024 09:04:27 Social History Question Answer Notes LastModified by Organizat ion Details LastModified Time Tobacco Smoking Status Former Smoker Mariela zamora [facility] 07/14/2024 09:07:09 What Is Your Level Of Alcohol Consumption? Occasional [email or web address] Information not available 07/14/2024 Sex: Unknown Functional Status None recorded. Mental Status None recorded. Family History Nothing Reported. Medical History Condition Response Asthma Y Gynecological HistoryNo gynecological history recorded. Obstetrics History GPAL:G 0 P 0 0 0 0 Past Encounters Encounter ID Performer Location Encounter Start Date Encounter Closed Date Diagnosis/Indication Diagnosis SNOMED-CT Code Diagnosis ICD10 Code Diagnosis Note [id number] JASMYN VALERO PA-C [facility] [address] [place] [address] 07/14/2024 08:52:01 07/14/2024 10:07:11 Chronic sore throat 160959796 J31.2 Family his tory of malignant neoplasm of oral cavity 0852814015 064420 Z80.8 Health Concerns Section Related Observation LastModified by Organization Detai ls LastModified Time None Recorded Concern Status LastModified by Organization Details LastModified Time None Recorded Advance Directives Directive None Recorded Payers Insurance Date Sequence Insurance Name Policy Number Policy Aguilar Covered Member ID Aguilar Member ID Guarantor Name 07/14/2024 1 [facility] [id number] Saurabh Wright [id number] Zeenat Wright Notes Date Note Type [...] zamora [place] - [facility] 07/14/2024 09:49:05 OBGyn Episode No OBEpisode recorded.
== END 2024-12-04 11:27 | disposition home or self-care (01) ==
LOC: HO.MAMMO 11:26
PROVIDERS: PCP Physician Assistant; Visit Provider Physician Assistant
DX: Z12.31 Encounter for screening mammogram for malignant neoplasm of breast (principal)
CPT/HCPCS: 77063; 77067

== ENCOUNTER → 2024-12-04 11:45 | Outpatient (BNV) | payer OTHER, SELFPAY | PROVIDERS: PCP Physician Assistant; Visit Provider Internal Medicine | DX: Z12.31 Encounter for screening mammogram for malignant neoplasm of breast (principal) | CPT/HCPCS: 77063; 77067 ==

== ENCOUNTER → 2024-12-14 14:12 | Outpatient (AMB) | payer OTHER, SELFPAY ==
--- NOTE | 2024-12-14 14:13 | A.OFFVIS_ITS ---
Intake Visit Reasons: S/P EGD; Dr. Whitney Intake Note: Zeenat presents as a video call for results to her EGD. CC: States that she is just wanting results - she seens results and were a little alarming to her. Brood Hatchery Manager Required: No Allergies theophylline Allergy (Intermediate, Verified 12/14/24 14:13) jittery HPI Comments Details: 53 y.o F with PMH who is here for burning throat . Pt describes it a globus sensation on and off throughout the day assoc with burning and urge to cough it up. Notices it more during the winter time since the air is dry now. No report of dysphagia but pt is very particular about food size and cuts up her food very small and chews thoroughly. Was taking NSAIDs but stopped as barium swallow showed gastritis. Started on PPI by her PCP. No fam hx of esophageal ca. Mother: tongue ca. Hx of smoking 15 y ago. Drinks 1 drink/day. Last colo 2022 - normal. EGD 11/17/24: * Grade A esophagitis * Cricopharyngeal narrowing (dilation) * Antral gastritis (biopsy) * Normal duodenum Path: A. Stomach, antrum, biopsy: - Antral-type mucosa with moderate chronic, focally active, inflammation, regenerative changes and intestinal metaplasia; negative for dysplasia. - Positive for H. pylori. B. Stomach, body, biopsy: Oxyntic mucosa with moderate chronic inactive inflammation; no Helicobacter organisms seen. C. Stomach, antrum, polypectomy: - Antral-type mucosa with moderate chronic active inflammation, surface hyperplastic changes and intestinal metaplasia; negative for dysplasia. - Positive for H. pylori 12/14/24: being seen in follow up as tele. Reports good response to dilation, no further difficulty swallowing or globus sensation. Biopsy results reviewed, including H pylori with GIM in antrum. Treatment discussed. Patient prefers Vonoprazan to improve adherence. [facility] Medical History (Updated 12/14/24 @ 15:13 by Courtney Whitney MD) Bilateral hip dysplasia Chronic sore throat Dysphagia Asthma Surgical History (Updated 12/14/24 @ 14:13 by ALONDRA Blanco) History of esophagogastroduodenoscopy (EGD) Hx of section Hx of colonoscopy Family History Father Hypercholesteremia Mother Thyroid disorder Oral cancer Social History Housing: House Are you a primary career development counselor to a significant other at home: No Do you presently have visiting nurse or other home services: No Alcohol intake: current Alcohol intake frequency: 0-2 drinks per day Patient Tobacco Use Status: Former Tobacco user Tobacco use type: Cigarette Cigarettes Per Day: 1 Years Smoked: 2 e-Cigarette/Vaping Use: Never Used Second Hand Smoke Exposure: No Substance Use Type: Former Substance User and Marijuana service: No Current occupational status: 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: No Cognitive needs: No Hearing needs: No Vision needs: Yes (glasses) Review of Systems Const All systems reviewed & are unremarkable except as noted in HPI and below Physical Exam Vital Signs: Video visit: No acute distress No icterus noted No facial asymmetry Speaking in full sentences Telehealth Telehealth Telehealth Platform: [employer] Location of provider rendering services: practice address Location of patient: address on file Patient Identification confirmed using: Name, : Yes Telehealth method: video Patient verbally consented to treatment: Yes Patient verbally consented to billing insurance company: Yes Patient informed of any privacy concerns related to visit: Yes Minutes spent on Phone/Video with Pt.: 12 Assessment & Plan Assessment & Plan (1) Cricopharyngeal achalasia: Code(s): K22.0 - Achalasia of cardia Category: Medical (2) H. pylori infection: Code(s): A04.8 - Other specified bacterial intestinal infections Category: Medical Plan 1. Dysphagia resolved since dilation. Likely secondary to mild cricopharyngeal stenosis, as well as some component of GERD. 2. H pylori gastritis Reviewed indication for treatment, including presence of focal gastric intestinal metaplasia in antrum. Plan: - Voquezna dual pack prescribed x 14 days. Pt plans to start this in December. - JACK 4 weeks after completion. Medications: New vonoprazan-amoxicillin 20 mg (28)- 500 mg (84) (Voquezna Dual [place]) for 14 days 112 pkgs 0RF A04.8 - Other specified bacterial intestinal infections Coding Level of Care Code Tele Est Pt Level 3 (45222) Diagnoses Cricopharyngeal achalasia K22.0 H. pylori infection A04.8
--- OUTSIDE RECORDS SUMMARY | 2024-12-14 14:23 | XMS_ITS | Data Portability ---
Author Organization [place] - [facility], Allergy Address [address] [place] [id number] Care Team Providers Care Client Care Representative Name Role Phone SINDY DEMPSEY Referring Provider [phone] LARA VO Primary Care Provider [phone] SINDY DEMPSEY Referring Provider Assessment Encounter Date [...] Organization Details Recorded Time Chronic sore throat [id number] Active Varinder Jasmyn zamora [place] - [facility] 09:36:45 Problem Notes None recorded. Procedures Surgical History Date Name Laterality Status Provider Name and Address Organization Details Recorded Time 07/14/20 24 Fiberoptic Laryngoscopy (Comprehensive) completed Jasmyn Valero [facility] 07/14/2024 09:36:36 Imaging Results None recorded. Procedure Notes None recorded. Medical Equipment None Reported. Allergies Allergen ID Allergen Name Allergen Category Reaction Reaction Severity Criticality Documentation Date Start Date Code Code System Note Provider Name and Address Organization Details Recorded Time 035331 theophyll ine medicatio n Not available Not available Not available 07/14/2024 92013 RxNorm Mariela zamora [facility] 09:05:37 185702 theophyll ine anhydrous medicatio n Not available Not available Not available 07/14/2024 29512 RxNorm Mariela zamora [facility] 09:06:02 Medications Name Sig Start Date Stop [...] Updated DateTime 07/14/2024 165.1 cm 20.1 kg/m2 74807.68 g Mariela Montoya [facility] 07/14/2024 09:04:27 Social History None recorded. Functional Status Question Answer Note LastModified by Organizat ion Details LastModified Time What is your level of alcohol consumption? Occasional [email or web address] Information not available 07/14/2024 Mental Status None recorded. Family History Nothing Reported. Medical History Condition Response Asthma Y Gynecological HistoryNo gynecological history recorded. Obstetrics History GPAL:G 0 P 0 0 0 0 Past Encounters Encounter ID Performer Location Encounter Start Date Encounter Closed Date Diagnosis/Indication Diagnosis SNOMED-CT Code Diagnosis ICD10 Code Diagnosis Note [id number] JASMYN VALERO PA-C [facility] [address] [place] [address] 07/14/2024 08:52:01 07/14/2024 10:07:11 Chronic sore throat 888473955 J31.2 Family his tory of malignant neoplasm of oral cavity 3806835074 705923 Z80.8 Health Concerns Section Related Observation LastModified by Organization Detai ls LastModified Time None Recorded Concern Status LastModified by Organization Details LastModified Time None Recorded Advance Directives Directive None Recorded Payers Insurance Date Sequence Insurance Name Policy Number Policy Aguilar Covered Member ID Aguilar Member ID Guarantor Name 07/14/2024 1 [facility] [id number] Saurabh Wright [id number] 37 Zeenat Wright Notes Date Note Type [...] 64 ounces of water per day. Jasmyn Czarick null, [place] - [facility] 07/14/2024 09:49:05 OBGyn Episode No OBEpisode recorded.
== END ==
LOC: HO.HGI 14:12
PROVIDERS: PCP Physician Assistant; Visit Provider Internal Medicine
DX: K22.0 Achalasia of cardia (principal); A04.8 Other specified bacterial intestinal infections
CPT/HCPCS: 99213

== ENCOUNTER 2024-12-16 14:45 | Outpatient (AMB) | payer BC, SELFPAY ==
--- NOTE | 2024-12-16 14:48 | A.OFFPC_ITS ---
Vital Signs 12/16/24 14:56 Height 5 ft 5 in Weight 124 lb BMI 20.6 BP 108/76 Blood Pressure Location Rt brachial Position Sitting Pulse 83 Pulse Source Pulse Oximeter Pulse Oximetry (%) 98 Oxygen Delivery Method Room Air Intake Visit Reasons: Sore Throat Intake Note: Sore throat resolved or lessened after endoscopy. Endoscopy was 11/17/24 Retail Inventory Control Clerk Required: No Allergies theophylline Allergy (Intermediate, Verified 12/16/24 14:54) jittery Tobacco use date assessed: 12/16/24 Dental Screening Dental Screen Date: 12/16/24 Did you have a dental visit in the last 12 months?: Yes Did you have a dental problem in the last 6 months where you did not have access to dental care?: No Was dental information given to patient?: Patient has dentist HPI Sore Throat HPI Details Patient is a 53-year-old female with a significant past medical history of asthma, hx of bulimia, presenting today for a follow up. HEENT: In May 2023 she would presented with concerns of postnasal drip in a right-sided lymph node that felt enlarged and dysphagia that is somewhat new. She did follow with ENT who started her on antihistamines which has helped and then she did see GI and had an endoscopy. 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 She had treatment of this and is starting treatment of her H pylori in a couple weeks after graduation parties. She states she is overall feeling a lot better and states that the sore throat has resolved. She does have GI follow up. 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 Psych: Has had a hard time falling asleep and staying asleep. She is on trazodone as needed. Colonoscopy: due in 2031 Pap smear: Up-to-date, follow up with [facility] Mammogram:[facility] Medical History (Updated 12/14/24 @ 15:13 by Courtney Whitney MD) Bilateral hip dysplasia Chronic sore throat Dysphagia Asthma Surgical History History of esophagogastroduodenoscopy (EGD) Hx of section Hx of colonoscopy Family History Father Hypercholesteremia Mother Thyroid disorder Oral cancer Social History (Updated 12/16/24 @ 15:08 by Antoinette Swanson [facility]) Housing: House Are you a primary behavioral health care coordinator to a significant other at home: No Do you presently have visiting nurse or other home services: No Alcohol intake: current Alcohol intake frequency: 0-2 drinks per day Patient Tobacco Use Status: Former Tobacco user Tobacco use type: Cigarette Cigarettes Per Day: 1 Years Smoked: 2 e-Cigarette/Vaping Use: Never Used Second Hand Smoke Exposure: No Substance Use Type: Former Substance User and Marijuana service: No Current occupational status: 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 1. Little interest or pleasure in doing things: not at all 2. Feeling down, depressed, or hopeless: not at all 3. Trouble falling or staying asleep, or sleeping too much: not at all 4. Feeling tired or having little energy: not at all 5. Poor appetite or overeating: not at all 6. Feeling bad about yourself - or that you are a failure or have let yourself or your family down: not at all 7. Trouble concentrating on things, such as reading the newspaper or watching television: not at all 8. Moving or speaking so slowly that other people could have noticed. Or the opposite - being so fidgety or restless that you have been moving around a lot more than usual: not at all 9. Thoughts that you would be better off or of hurting yourself in some way: not at all Total score: 0 Depression Screening Interpretation: Negative Depression Screening Done: Yes 30017 - PHQ-9 Billing: Yes Source: Developed by Drs. Brice Franco, Sherin Cash, Basilio Dent and colleagues, with an educational bryce from [employer]. Thrive Questionnaire Date Thrive assessed: 12/16/24 I am a: Patient What is your living situation today?: I have a steady place to live Within the past 12 months, did the food you bought not last and you didn't have the money to get more?: Never true Within the past 12 months, did you worry whether your food would run out before you got money to buy more?: Never true Do you have trouble paying for medicines?: No Do you have trouble getting transportation to medical appointments?: No Do you have trouble paying your heating and electricity bill?: No Do you have trouble taking care of your child, family member or friend?: No Do you have trouble with day-to-day activities such as bathing, preparing meals, shopping, managing finances, etc.?: No Are you currently unemployed and looking for a job?: No Are you interested in more education?: No Please select the resources that you would like help with: None Currently or been in a relationship where the following occur: No concerns reported THRIVE Score: 0 AUDIT C Alcohol Use Questionnaire (AUDIT-C) 1. How often do you have a drink containing alcohol?: 4 or more times a week 2. How many drinks containing alcohol do you have on a typical day when you are drinking?: 1 or 2 3. How often do you have six or more drinks on one occasion?: Less than monthly Total Score: 5 IQRA-7 AMB Questionnaire IQRA-7 Date IQRA - 7 assessed: 12/16/24 Feeling nervous, anxious, or on edge: 0 = Not at all Not being able to stop or control worryin = Not at all Worrying too much about different things: 0 = Not at all Trouble relaxin = Not at all Being so restless that it is hard to sit still: 0 = Not at all Becoming easily annoyed or irritable: 0 = Not at all Feeling afraid as if something awful might happen: 0 = Not at all Total IQRA-7 score (0-4 normal; 5-9 mild; 10-14 moderate; 15-21 severe): 0 Source: Developed by Drs. Brice Franco, Sherin Cash, Basilio Dent and colleagues, with an educational bryce from [employer]. IQRA-7 Assessment Billing IQRA-7 Assessment Tool: IQRA-7 Assessment 09712 Physical exam (Primary Care) Vital Signs: Last Vital Signs Pulse 83 12/16/24 14:56 BP 108/76 12/16/24 14:56 Pulse Ox 98 12/16/24 14:56 Oxygen Delivery Method Room Air 12/16/24 14:56 BMI result Body Mass Index 20.6 Tobacco/Smoking Status: Tobacco use Status Tobacco use date assessed 12/16/24 12/16/24 15:01 Patient Tobacco Use Status Former Tobacco user 12/16/24 15:08 Tobacco use type Cigarette 12/16/24 15:08 e-Cigarette/Vaping Use Never Used 12/16/24 15:08 PHQ-9: PHQ-9 Score PHQ-9: Total score 0 12/16/24 15:34 Depression Screening Interpretation: Negative Thrive Assessment: Date of Thrive Assessment Date Thrive assessed 12/16/24 12/16/24 15:01 Currently or been in a relationship where the following occur: No concerns reported Const Orientation/consciousness: patient oriented x3 HENMT Ears: hearing grossly normal bilaterally Neck Thyroid: Thyroid normal Lymphatic: no lymphadenopathy noted Resp Auscultation: clear to auscultation bilaterally Cardio Rate: regular rate Rhythm: regular rhythm Heart sounds: S1 normal heart sound present and S2 normal heart sound present GI Inspection: Yes normal to inspection Palpation (GI): Soft to palpation and Other GI palpation findings present (nontender, no cva tenderness) Auscultation: normoactive bowel sounds Rectal Exam - Female: deferred Skin General skin exam: no rashes or lesions noted Neuro General: patient oriented x3, gait normal and no focal motor deficits Coding Level of Care Code Est Pt Level 4 (43414) Complex EM visit Add On G2211 Diagnoses Chronic sore throat J31.2 H. pylori infection A04.8 Additional Codes IQRA-7 Assessment Billing - IQRA-7 Assessment Tool: IQRA-7 Assessment 26940 ([id number]) PHQ-9 - 73606 - PHQ-9 Billing: Yes ([id number]) Assessment & Plan Assessment & Plan (1) Chronic sore throat: Code(s): J31.2 - Chronic pharyngitis Category: Medical Plan: Symptoms have improved/resolved (2) H. pylori infection: Code(s): A04.8 - Other specified bacterial intestinal infections Category: Medical Plan: She will start treatment for this soon Plan Labs ordered. Follow up for routine visit. Sooner if needed. Patient understands and agrees with this plan. Orders: Orders Complete Blood Count Auto Diff 12/16/24 A04.8 - Other specified bacterial intestinal infections, J31.2 - Chronic pharyngitis UA CC w/rflx Micro + Cult 12/16/24 A04.8 - Other specified bacterial intestinal infections, J31.2 - Chronic pharyngitis, Z13.220 - Encounter for screening for lipoid disorders Comprehensive [place]. Panel Fast 12/16/24 A04.8 - Other specified bacterial intestinal infections, J31.2 - Chronic pharyngitis TSH reflex Free T4 12/16/24 A04.8 - Other specified bacterial intestinal infections, J31.2 - Chronic pharyngitis Lipid Panel 12/16/24 A04.8 - Other specified bacterial intestinal infections, J31.2 - Chronic pharyngitis
--- OUTSIDE RECORDS SUMMARY | 2024-12-16 14:53 | XMS_ITS | Data Portability ---
Author Organization [place] - [facility], Allergy Address [address] [place] [address] Care Team Providers Care Nursing Support Worker Name Role Phone SINDY DEMPSEY Referring Provider [phone] LARA VO Primary Care Provider SINDY DEMPSEY [...] Organization Details Recorded Time Chronic sore throat 107203599 Active Varinder Jasmyn zamora [place] - [facility] 09:36:45 Problem Notes None recorded. Procedures Surgical History Date Name Laterality Status Provider Name and Address Organization Details Recorded Time 07/14/20 24 Fiberoptic Laryngoscopy (Comprehensive) completed Jasmyn Valero [facility] 07/14/2024 09:36:36 Imaging Results None recorded. Procedure Notes None recorded. Medical Equipment None Reported. Allergies Allergen ID Allergen Name Allergen Category Reaction Reaction Severity Criticality Documentation Date Start Date Code Code System Note Provider Name and Address Organization Details Recorded Time 052290 theophyll ine medicatio n Not available Not available Not available 07/14/2024 30871 RxNorm Mariela zamora [facility] 09:05:37 977555 theophyll ine anhydrous medicatio n Not available Not available Not available 07/14/2024 70852 RxNorm Mariela zamora [facility] 09:06:02 Medications Name Sig Start Date [...] Updated DateTime 07/14/2024 165.1 cm 20.1 kg/m2 75462.68 g Mariela Montoya [facility] 07/14/2024 09:04:27 Social History None recorded. Functional Status Question Answer Note LastModified by Organizat ion Details LastModified Time What is your level of alcohol consumption? Occasional Information not available 07/14/2024 Mental Status None recorded. Family History Nothing Reported. Medical History Condition Response Asthma Y Gynecological HistoryNo gynecological history recorded. Obstetrics History GPAL:G 0 P 0 0 0 0 Past Encounters Encounter ID Performer Location Encounter Start Date Encounter Closed Date Diagnosis/Indication Diagnosis SNOMED-CT Code Diagnosis ICD10 Code Diagnosis Note [id number] JASMYN VALERO PA-C [facility] on [address] [place] [address] 07/14/2024 08:52:01 07/14/2024 10:07:11 Chronic sore throat 352833778 J31.2 Family his tory of malignant neoplasm of oral cavity 4720902326 259150 Z80.8 Health Concerns Section Related Observation LastModified by Organization Detai ls LastModified Time None Recorded Concern Status LastModified by Organization Details LastModified Time None Recorded Advance Directives Directive None Recorded Payers Insurance Date Sequence Insurance Name Policy Number Policy Aguilar Covered Member ID Aguilar Member ID Guarantor Name 07/14/2024 1 [facility] [id number] Saurabh Wright [id number] 37 Zeenat Wright Notes Date Note Type [...] null, [place] - [facility] 07/14/2024 09:49:05 OBGyn Episode No OBEpisode recorded.
[2024-12-16 14:56] VITALS: BP 108/76; PULSE 83; O2SAT 98; BMI 20.6
== END 2024-12-16 15:41 | disposition home or self-care (01) ==
LOC: HO.HMCFM 14:46
PROVIDERS: PCP Physician Assistant; Visit Provider Physician Assistant
DX: J31.2 Chronic pharyngitis (principal); A04.8 Other specified bacterial intestinal infections

== ENCOUNTER → 2024-12-16 14:45 | Outpatient (BNVA) | payer BC, SELFPAY | PROVIDERS: PCP Physician Assistant; Visit Provider Physician Assistant | DX: J31.2 Chronic pharyngitis (principal); A04.8 Other specified bacterial intestinal infections; J45.909 Unspecified asthma, uncomplicated; Z87.891 Personal history of nicotine dependence | CPT/HCPCS: 96127 ==

== ENCOUNTER 2025-03-25 15:12 | Outpatient (REF) | payer BC, SELFPAY | END 2025-03-25 15:13 | disposition home or self-care (01) | LOC: HO.LNP 15:12 | PROVIDERS: PCP Physician Assistant; Visit Provider Internal Medicine | DX: A04.8 Other specified bacterial intestinal infections (principal); K29.70 Gastritis, unspecified, without bleeding | CPT/HCPCS: 83013 ==

== ENCOUNTER 2025-03-25 15:12 | Outpatient (AMB) | payer BC, OTHER, SELFPAY ==
--- NOTE | 2025-03-25 15:29 | AM.OFFVISNUR ---
Intake Visit Reasons: h pylori test Intake Note: Patient presents for collection of?H Pylori?breath test. Patient has been fasting for 1 hour (nothing to eat, drink, no chewing gum or smoking) has not taken any antacid medication for at least 2 weeks and has no allergies to artificial sweeteners.?? Allergies theophylline Allergy (Intermediate, Verified 12/16/24 14:54) jittery Assessment & Plan Assessment & Plan (1) Dysphagia: Code(s): R13.10 - Dysphagia, unspecified Category: Medical Qualifiers: Dysphagia type: unspecified Qualified Code(s): R13.10 - Dysphagia, unspecified (2) Erosive esophagitis: Code(s): K22.10 - Ulcer of esophagus without bleeding Category: Medical Plan: Process for specimen collection and reason for testing was explained to the patient. Specimen collection. Patient instructed to take a deep breath and then exhale into the blue bag, filling it up as much as possible. Patient instructed to drink a mixture of water and the artificial sweetener with a straw. A 15 minute wait period was observed. Patient instructed to take a deep breath and then exhale into the pink bag, filling it up as much as possible.?? (3) H. pylori infection: Code(s): A04.8 - Other specified bacterial intestinal infections Category: Medical Plan Patient presents for collection of?H Pylori?breath test. Patient has been fasting for 1 hour (nothing to eat, drink, no chewing gum or smoking) has not taken any antacid medication for at least 2 weeks and has no allergies to artificial sweeteners.???This test checks for an overgrowth of bacteria in your stomach. We all have bacteria but some may have more than others. It is treatable. if the test comes back negative there is nothing else to do. If the test result is positive we will treat you with 2 antibiotics and a medication to decrease the acid in your stomach (PPI) for 2 weeks. Two weeks after you have completed the treatment we will retest you to make sure the overgrowth has resolved. Orders: Orders H Pylori Breath Test Today A04.8 - Other specified bacterial intestinal infections, K29.70 - Gastritis, unspecified, without bleeding Coding Level of Care Code Established Pt Est Pt Level 1 (14010) Patient Type Established Medical Decision Making Straight Forward Diagnoses Dysphagia, unspecified type R13.10 Dysphagia type: unspecified Erosive esophagitis K22.10 H. pylori infection A04.8
== END 2025-03-25 15:36 | disposition home or self-care (01) ==
PROVIDERS: PCP Physician Assistant; Visit Provider Internal Medicine
DX: R13.10 Dysphagia, unspecified (principal); K22.10 Ulcer of esophagus without bleeding; A04.8 Other specified bacterial intestinal infections
CPT/HCPCS: 99499